=== PATIENT | female | born 1995 | race African-American/Black ===

== ENCOUNTER 2018-10-31 16:55 | Emergency (ER) | payer MEDICAID, SELFPAY ==
[2018-10-31 17:34] LABS: Bacteria/HPF None Seen HPF (None Seen); Bilirubin Negative (Negative); Blood, Urine Negative (Negative); Clarity Clear (Clear); Glucose, Urine (Dipstick) Normal (Negative); Leukocyte 25 Leu/uL (Negative); Nitrite Negative (Negative); Protein, Urine (Dipstick) 10 mg/dL (Neg-Trace); Squamous Epithelial 0-3 HPF (0-3); Urobilinogen Normal mg/dL (Less than 2)
== END 2018-10-31 18:00 | disposition home or self-care (01) ==
LOC: ERS 16:55
DX: O99.89 Other specified diseases and conditions complicating pregnancy, childbirth and the puerperium (principal); R35.0 Frequency of micturition; Z3A.19 19 weeks gestation of pregnancy
CPT/HCPCS: 81003; 81015; 87086; 99283

== ENCOUNTER 2019-01-11 13:25 | Observation (INO) | payer OTHER ==
[2019-01-11 13:59] VITALS: BMI 31.2
[2019-01-11] MEDS ORDERED: hydrALAZINE 20 MG/ML VIAL SLOW IVP PRN ×2 (14:03→17:41)
[2019-01-11 14:26] LABS: #Eosinphils 0.1 thou/uL (0.0-0.7); #Lymphocytes 3.3 thou/uL (1.20-3.40); #Monocytes 0.9 thou/uL (0.11-0.59); #Neutrophils 6.6 thou/uL (1.40-6.50); %Basophils 0.2 % (0.0-1.0); %Eosinophils 1.3 % (0.0-10.0); %Lymphocytes 30.5 % (21.0-51.0); %Monocytes 7.8 % (0.0-10.0); %Neutrophils 60.1 % (42.0-75.0); Hemoglobin 8.5 g/dL (12.0-16.0); Mean Corpuscular HGB CONC 31.3 g/dL (32.0-36.0); Mean Corpuscular Hemoglobin 20.8 pg (27.0-31.0); Mean Corpuscular Volume 66.7 fL (78.0-98.0); Mean Platelet Volume 9.6 fL (7.4-10.4); Platelet Count 216 thou/uL (130-400); RBC Distribution Width 15.4 % (11.5-14.5); Red Blood Cell (RBC) Count 4.08 mill/uL (4.20-5.40); White Blood Cell (WBC) Count 10.9 thou/uL (4.8-10.8)
[2019-01-11 14:42] LABS: AST (SGOT) 14 U/L (5-34); Anion Gap 11 mmol/L (10-20); BUN (Urea Nitrogen) 6 mg/dL (7.0-18.7); Calc. Creatinine Clearance 172 mL/min (70-130); Calcium 8.4 mg/dL (7.8-10.44); Carbon Dioxide 20 mmol/L (22-29); Chloride 107 mmol/L (98-107); Estimated GFR-MDRD Greater than 90; Glucose 72 mg/dL (70-105); Potassium 3.7 mmol/L (3.5-5.1); Sodium 134 mmol/L (136-145)
[2019-01-11 14:45] LABS: Hypochromia SLIGHT = 6-15 cells (100X) (0-5/hpf); MDiff Complete? YES; Microcytosis MODERATE=15-30 cells (100X) (0-5/hpf); Ovalocytes SLIGHT = 2-5 cells (100X) (0-1/hpf); Platelet Morphology Comment Appears Adequate; Polychromasia SLIGHT = 2-3 cells (100X) (0-2/hpf); Schistocytes SLIGHT = 2-5 cells (100X) (0-1/hpf); Target Cells SLIGHT = 2-5 cells (100X) (0-1/hpf); Tear Drops SLIGHT = 2-5 cells (100X) (0-1/hpf)
[2019-01-11 15:11] LABS: Bilirubin Negative (Negative); Blood, Urine Negative (Negative); Clarity Clear (Clear); Glucose, Urine (Dipstick) Normal (Negative); Leukocyte 75 Leu/uL (Negative); Nitrite Negative (Negative); Protein, Urine (Dipstick) 30 mg/dL (Neg-Trace); Urobilinogen Normal mg/dL (Less than 2)
[2019-01-11 15:20] LABS: Bacteria/HPF 2+ HPF (None Seen)
[2019-01-11 15:22] LABS: Urine Culture Reflex No No
--- NOTE | 2019-01-11 16:08 | HP ---
TIME OF SERVICE: 1530. REASON FOR ADMISSION: Elevated blood pressures at private MD office with elevated protein/creatinine ratio. HISTORY OF PRESENT ILLNESS: Ms. Westbrook is a 23-year-old 3, para 2, at 30 weeks today by stated TOM, who was sent over from Dr. Hill's office. She has had some weight gain and edema developed over the past week and had 4+ protein in the office. She has a history of prior preeclampsia. Blood pressures were non severe range in the office. She denies headache, scotoma, or blurred vision. 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 at term without complication, #1. 2. at 36 weeks for distress with preeclampsia, #2. Blood type A positive. Antibody negative. Pap negative. Rubella immune. PAST MEDICAL HISTORY: Denies. PAST SURGICAL HISTORY: . ALLERGIES: DENIES. MEDICATIONS: vitamins. SOCIAL HISTORY: Denies tobacco, alcohol, or IV drug abuse. FAMILY HISTORY: Noncontributory. REVIEW OF SYSTEMS: Noncontributory. PHYSICAL EXAMINATION: GENERAL: White female, in no acute distress, initial presentation. VITAL SIGNS: Blood pressure 132/86, pulse 85, respirations 18, temperature 98.7. HEENT: Within normal limits. LUNGS: Clear to auscultation bilaterally. HEART: Regular rate and rhythm. BREASTS: No masses bilaterally. ABDOMEN: Soft and nontender. Fundal height 30 cm. FHTs 140s. EXTERNAL GENITALIA: Unremarkable. PELVIC: Deferred. EXTREMITIES: DTRs 1+. LABORATORY DATA: Hematocrit is 27% with microcytic indices, white count of 10.9, platelet count of 216. Basic metabolic panel was within normal limits except for mild hyponatremia. AST was normal. Urinalysis revealed 75 leukocyte esterase, 4-6 RBCs and WBCs and squames as well as 2+ bacteria. Urine creatinine was 37, random protein was 41, consistent with a protein/creatinine ratio of 1.0 or greater. IMPRESSION: History of preeclampsia in the past with new onset proteinuria and edema without severe range blood pressures. PLAN: Admission, serial blood pressures, check urine culture and 24-hour urine. The patient has had ultrasounds performed on a monthly basis at Dr. Hill's office and verbal report is that normal rate of growth. Job ID: [id number]
[2019-01-11] MEDS ORDERED: Promethazine HCl 25 MG/ML VIAL IM PRN (17:41)
[2019-01-11] MEDS ORDERED: Ondansetron ODT 4 MG TAB PO PRN (17:41)
[2019-01-11] MEDS ORDERED: Acetaminophen 325 MG TAB PO PRN (17:41)
[2019-01-11] MEDS ORDERED: Ondansetron PF 4 MG/2 ML Vial IVP PRN (17:41)
[2019-01-11 18:44] LABS: HBSAg Index 0.19 S/CO (0-0.99); Hep B Surf Ag Non-Reactive S/CO (NonReactive)
[2019-01-11 18:47] LABS: Syphilis Antibody Nonreactive (Nonreactive); Syphilis Antibody Index 0.05 S/CO (<1.00 Non-Reactive)
[2019-01-11 19:23] LABS: Amphetamine Not Detected (NotDetected); Barbiturates Screen Not Detected (NotDetected); Benzodiazepine Screen Not Detected (NotDetected); Cocaine Metabolite Screen Not Detected (NotDetected); Medtox Control Line Valid? VALID (VALID); Medtox Reader # READER 4; Methadone Not Detected (NotDetected); Methamphetamine Not Detected (NotDetected); Opiate Screen Not Detected (NotDetected); Oxycodone Screen Not Detected (NotDetected); Phencyclidine (PCP) Not Detected (NotDetected); THC/Cannabinoid Screen Not Detected (NotDetected); Tricyclic Screen Not Detected (NotDetected)
[2019-01-12 01:39] LABS: Urine Total Volume 2925 mL (600-1600)
[2019-01-12 01:52] LABS: Protein - 24 Hr 556 mg/24 hr (Less than 300); Protein, Urine 19 mg/dL (1-14)
[2019-01-12 07:46] VITALS: BP 124/78; TEMP 99
--- NOTE | 2019-01-13 03:55 | DIS ---
DATE OF ADMISSION: 01/11/2019 DATE OF DISCHARGE: 01/12/2019 HOSPITAL COURSE: Ms. Westbrook was admitted to observation status on 01/11 after being sent over from Dr. Hill's office at 30 weeks gestation by stated TOM. She is a G3, P2 with a history of preeclampsia in previous pregnancies. She denied headache, blurred vision, scotoma, and no severe range blood pressures. She was found to have normal preeclampsia labs upon admission, except for 4+ proteinuria and a protein to creatinine ratio of greater than 1.0. She was admitted for 24-hour urine sampling. Approximately 12 hours specimen was collected by the lab with a 3 L of volume and 556 mg of protein total. Considering that this would place the patient at approximately 1 g per 24 hours, suspicions about her proteinuria were confirmed. Serial blood pressures were not consistent with preeclampsia with the highest being 139/92. PHYSICAL EXAMINATION: VITAL SIGNS: This morning, blood pressure was 131/83, temperature 98.0, pulse 62, respirations 18. EXTREMITIES: The patient has minimal if any edema in her hands and slight in her feet. DTRs are 1+. LUNGS: Clear to auscultation bilaterally. ABDOMEN: Soft and nontender without rebound or guarding. FHTs are 150s. IMPRESSION: Thirty weeks gestation with new onset proteinuria. Blood pressures are not consistent with gestational hypertension or preeclampsia at this time. PLAN: Discussed options with the patient and Dr. Hill. We will go ahead and discharge the patient home as she has needs to provide care for her children. ER precautions were given to the patient and she will follow up with Dr. Hill on a weekly basis. We will obtain blood pressure cuff and check blood pressure at home 2 to 3 times a day and re-present if elevated pressures are noted. As pressures are not elevated this time, we will not administer corticosteroids, but if the patient re- presents with elevated blood pressures, would be a good candidate for corticosteroids as well. The patient reports that she has been getting serial rate of growth ultrasounds with Dr. Hill in his office that have been normal. Antepartum records not available. Job ID: [id number]
== END 2019-01-12 09:13 | disposition home health service (06) ==
LOC: L&D/OP 13:25 → INTOOBSV 17:37 → 3SE 17:37
PROVIDERS: ADMIT Obstetrics & Gynecology; ATTEND Obstetrics & Gynecology
DX: O12.13 Gestational proteinuria, third trimester (principal); Z3A.30 30 weeks gestation of pregnancy
CPT/HCPCS: 36415; 80048; 80306; 81001; 82570; 84156; 84450; 85025; 86780; 86850; 86900; 86901; 87086; 87340; 99285; G0378

== ENCOUNTER 2019-01-19 15:58 | Inpatient (IN) | payer OTHER ==
[2019-01-19] MEDS ORDERED: hydrALAZINE 20 MG/ML VIAL SLOW IVP PRN ×3 (16:18→20:36)
[2019-01-19] MEDS ORDERED: Promethazine HCl 25 MG/ML VIAL IM PRN (16:26)
[2019-01-19] MEDS ORDERED: Calcium Gluc 4.6 MEQ/10 ML (100 MG/ML) SLOW IVP PRN (16:26)
[2019-01-19] MEDS ORDERED: Ondansetron PF 4 MG/2 ML Vial IVP PRN (16:26)
[2019-01-19] MEDS ORDERED: Acetaminophen 500 MG TAB PO PRN (16:26)
[2019-01-19 16:27] VITALS: BMI 32.4
[2019-01-19] MEDS ORDERED: Magnesium Sulfate 20 GM/WATER 500 ML BAG IVPB SCH (16:30)
[2019-01-19] MEDS ORDERED: Lactated Ringer's 1,000 ML IV SCH (16:54)
[2019-01-19 16:58] LABS: #Basophils 0.1 thou/uL (0.0-0.2); #Eosinphils 0.1 thou/uL (0.0-0.7); #Lymphocytes 3.2 thou/uL (1.20-3.40); #Monocytes 0.8 thou/uL (0.11-0.59); #Neutrophils 8.5 thou/uL (1.40-6.50); %Basophils 0.8 % (0.0-1.0); %Lymphocytes 24.8 % (21.0-51.0); %Monocytes 6.2 % (0.0-10.0); %Neutrophils 67.1 % (42.0-75.0); Hemoglobin 9.8 g/dL (12.0-16.0); Mean Corpuscular HGB CONC 30.8 g/dL (32.0-36.0); Mean Corpuscular Hemoglobin 20.6 pg (27.0-31.0); Mean Corpuscular Volume 66.8 fL (78.0-98.0); Mean Platelet Volume 10.8 fL (7.4-10.4); Platelet Count 260 thou/uL (130-400); RBC Distribution Width 16.6 % (11.5-14.5); Red Blood Cell (RBC) Count 4.74 mill/uL (4.20-5.40); White Blood Cell (WBC) Count 12.7 thou/uL (4.8-10.8)
[2019-01-19 17:28] LABS: ALT (SGPT) 12 U/L (8-55); AST (SGOT) 23 U/L (5-34); Albumin 2.8 g/dL (3.5-5.0); Alkaline Phosphatase 68 U/L (40-110); Amphetamine Not Detected (NotDetected); Anion Gap 15 mmol/L (10-20); BUN (Urea Nitrogen) 10 mg/dL (7.0-18.7); Barbiturates Screen Not Detected (NotDetected); Benzodiazepine Screen Not Detected (NotDetected); Bilirubin, Total 0.3 mg/dL (0.2-1.2); Calc. Creatinine Clearance 150 mL/min (70-130); Calcium 8.5 mg/dL (7.8-10.44); Carbon Dioxide 21 mmol/L (22-29); Chloride 105 mmol/L (98-107); Cocaine Metabolite Screen Not Detected (NotDetected); Estimated GFR-MDRD Greater than 90; Globulin 3.5 g/dL (2.4-3.5); Glucose 68 mg/dL (70-105); Medtox Control Line Valid? VALID (VALID); Medtox Reader # READER 1; Methadone Not Detected (NotDetected); Methamphetamine Not Detected (NotDetected); Opiate Screen Not Detected (NotDetected); Oxycodone Screen Not Detected (NotDetected); Phencyclidine (PCP) Not Detected (NotDetected); Potassium 4.6 mmol/L (3.5-5.1); Protein, Total 6.3 g/dL (6.0-8.3); Sodium 136 mmol/L (136-145); THC/Cannabinoid Screen Not Detected (NotDetected); Tricyclic Screen Not Detected (NotDetected)
[2019-01-19] MEDS: Magnesium Sulfate 20 gm/500 ml 20 GM/500 ML BAG IVPB SCH (17:33)
--- NOTE | 2019-01-19 17:34 | ULT ---
US Biophysical Profile History: Severe hypertension Comparison: None. Findings: Real-time grayscale and color evaluation of the gravid uterus was performed. Single viable intrauterine with average ultrasound age 31 week 4 day with estimated date of delivery March 19, 2019. Biometry: Biparietal diameter: 7.98 cm, 32 weeks 0 day Head circumference: 29.4 similar, 32 weeks 3 day Abdominal circumference: 26.19 cm, 30 week 2 day Femur length: 6.01 cm, 31 week 2 day Estimated weight: 3 lbs. 11 oz., 32nd percentile. Biophysical profile score: 8/8 heart rate: 128 bpm Amniotic fluid index: 7.6 cm No placenta previa. The placenta is anterior and the presentation is cephalic Impression: Biophysical profile score of 8/8.
[2019-01-19 17:39] LABS: Syphilis Antibody Nonreactive (Nonreactive); Syphilis Antibody Index 0.06 S/CO (<1.00 Non-Reactive)
[2019-01-19] MEDS: Betamet Acet/Betamet Na Ph 30 MG/5 ML VIAL IM SCH (17:39)
[2019-01-19 17:40] LABS: HBSAg Index 0.17 S/CO (0-0.99); Hep B Surf Ag Non-Reactive S/CO (NonReactive)
--- NOTE | 2019-01-19 17:52 | PDOC.LDHP ---
Labor and Delivery H&P Chief complaint: other (Elevated BP) HPI: 23 y/o at 31w1d presents for evaluation of elevated BPs in clinic yesterday. Was advised to come in yesterday but did not arrive until today. Denies LANG, vision changes, RUQ pain, or other concerns. Denies VB, LOF, ctx, or decreased FM. ROS neg for HEENT, cv, pulm, gi, gu, neuro, psych, skin, musculoskeletal, or constitutional symptoms other than mentioned above. OB provider - [facility] History Details: 1 prior term 1 prior LTCS at 36 weeks Past Medical History: Obesity Current medications: pre-edouard vitamins Previous surgical history: low tranverse CS (x1) Allergies/Adverse Reactions: Allergies Allergy/AdvReac Type Severity Reaction Status Date / Time No Known Drug Allergies Allergy Verified 01/11/19 17:47 Social history: none - Physical Exam Abnormal vital signs: severe range BPs General: NAD, resting Lungs: nonlabored breathing Abdomen: gravid Extremeties: no edema FHT: category 1 (130s, mod variability, + accels, no decels) Kismet contractions every: occasional - Assessment 23 y/o at 31w1d with severe range BPs requiring treatment. - Plan Plan: admit to L&D, magnesium for seizure prophylaxis -: - CBC, CMP, urine protein/Creatinine ordered and pending - Celestone for lung maturity - Magnesium for seizure prophylaxis and neuroprotection - Hydralazine for BPs over 160/110 - US for growth: S=D, BPP 8/8 - Continue to monitor
[2019-01-19] MEDS ORDERED: hydrALAZINE 20 MG/ML VIAL ONE (20:37)
[2019-01-20] MEDS: Magnesium Sulfate 20 gm/500 ml 20 GM/500 ML BAG IVPB SCH ×2 (01:27→11:47)
[2019-01-20 06:48] LABS: Hemoglobin 10.4 g/dL (12.0-16.0); Mean Corpuscular HGB CONC 30.9 g/dL (32.0-36.0); Mean Corpuscular Hemoglobin 20.7 pg (27.0-31.0); Mean Platelet Volume 8.2 fL (7.4-10.4); Platelet Count 295 thou/uL (130-400); RBC Distribution Width 16.7 % (11.5-14.5); Red Blood Cell (RBC) Count 5.04 mill/uL (4.20-5.40); White Blood Cell (WBC) Count 14.7 thou/uL (4.8-10.8)
[2019-01-20 07:14] LABS: ALT (SGPT) 10 U/L (8-55); AST (SGOT) 16 U/L (5-34); Albumin 2.7 g/dL (3.5-5.0); Alkaline Phosphatase 70 U/L (40-110); Anion Gap 15 mmol/L (10-20); BUN (Urea Nitrogen) 11 mg/dL (7.0-18.7); Bilirubin, Total 0.2 mg/dL (0.2-1.2); Calc. Creatinine Clearance 144 mL/min (70-130); Calcium 8.1 mg/dL (7.8-10.44); Carbon Dioxide 18 mmol/L (22-29); Chloride 101 mmol/L (98-107); Estimated GFR-MDRD Greater than 90; Globulin 3.6 g/dL (2.4-3.5); Glucose 103 mg/dL (70-105); Magnesium 7.1 mg/dL (1.6-2.6); Potassium 4.8 mmol/L (3.5-5.1); Protein, Total 6.3 g/dL (6.0-8.3); Sodium 129 mmol/L (136-145)
--- NOTE | 2019-01-20 08:21 | PDOC.EVN ---
Event Note - Event Note Event Note: Hospital Medicine Director SARA [id number] EGA: 31weeks 2 days ED 03/22/19 I am at bedsdie now with Carrie We will give lasix 10mg SIVP x 1 not for BP control but for third space edema in feet. BPs reviewed: 140/90s UOP at 200ml/hr FHTS ok Mag in use Steroid next at 1730 SCDs onj
[2019-01-20] MEDS ORDERED: Furosemide 20 MG/2 ML VIAL SLOW IVP SCH (08:30)
[2019-01-20] MEDS: Ferrous Sulfate 325 MG TAB PO SCH ×2 (09:15→17:26)
--- NOTE | 2019-01-20 15:59 | PDOC.EVN ---
Event Note - Event Note Event Note: 1600 31.2 weeks Preeclampsia S. Doing well O. BPs reviewed: 140/80s-90s, none severe Lasix with variable response: initially larger UPO but latesly effect has trailed off Strop checked A/P: 31.2 weeks today with PREECLAMPSIA. Large amount of urine protein noted but again that is not part of severe criteria any longer. We will stop MagSulfate now. Celestone to be completed today Helpock IV remove quinn We will follow BPs here in L&D off mag for a while
[2019-01-20] MEDS: Betamet Acet/Betamet Na Ph 30 MG/5 ML VIAL IM SCH (17:26)
--- NOTE | 2019-01-20 19:48 | PDOC.EVN ---
Event Note - Event Note Event Note: At bedside One BP was 160/90s while she was , ASX...retaken was systolics in 150s. Prior CS X 1 with last reviewed
--- NOTE | 2019-01-21 06:28 | PDOC.LDPN ---
Labor & Delivery Progress Note - Subjective Subjective: comfortable, no concerns - Objective Abnormal vital signs: BPs 140-150s/90s General: NAD Uterine fundus: non tender Wanda contractions every: Monitors off as not in labor Other exam findings: Clinicaly well, NAD, abdomen soft - Assessment (1) Pre-eclampsia in third trimester Code(s): O14.93 - UNSPECIFIED PRE-ECLAMPSIA, THIRD TRIMESTER Current Visit: Yes Status: Acute Plan: continue plan of care (EGA now 31 W3D...BPs elevated but nonsevere, we will transfer to the [facility] for BP monitoring. BP every 4 hrs there. NST QDay)
[2019-01-21] MEDS: Ferrous Sulfate 325 MG TAB PO SCH ×2 (08:32→18:08)
[2019-01-21] MEDS ORDERED: Polyethylene Glycol 3350 17 GM Packet PO PRN (18:03)
[2019-01-21] MEDS: hydrALAZINE 20 MG/ML VIAL SLOW IVP PRN (20:24)
[2019-01-22] MEDS: hydrALAZINE 20 MG/ML VIAL SLOW IVP PRN ×2 (04:16→05:29)
--- NOTE | 2019-01-22 06:44 | PRG ---
DATE OF SERVICE: TIME OF SERVICE: 619 SUBJECTIVE: Ms. Westbrook is now at 31 weeks and 4 days gestation. She is G3, P2, previous , previous vaginal delivery, who is admitted for elevated blood pressures with proteinuria. She is resting comfortably. OBJECTIVE: VITAL SIGNS: Current blood pressure 136/83, blood pressure at 0530 was 173/98 prior to second dose of apresoline, patient had a blood pressure of 191/97 at 0415. She has remained afebrile at 98.2, pulse 82, and respirations 16. She denies headache, blurred vision, right upper quadrant pain. FHTs are 140s. DTRs are 2+. LABORATORY DATA: No recent labs. IMPRESSION: Worsening hypertension status post corticosteroids and magnesium for 24 hours with improvement of blood pressures and transferred to the [facility]. PLAN: 1. N.p.o. 2. Transfer back to Labor and Delivery. 3. Serial blood pressures. 4. If blood pressures remain high, we will initiate magnesium sulfate, repeat IV blood pressure medications and likely proceed with repeat section. Of note, patient's protein to creatinine ratio is approximately 7.0. Urine drug screen on admission was negative. Job ID: [id number]
[2019-01-22] MEDS ORDERED: Bicitra 30 ML UDCUP PO SCH (07:15)
[2019-01-22] MEDS ORDERED: CEFAZOLIN 2 GM in Premix Bag 1 BAG IVPB SCH (07:15)
[2019-01-22 08:07] LABS: Hemoglobin 9.4 g/dL (12.0-16.0); Mean Corpuscular HGB CONC 29.6 g/dL (32.0-36.0); Mean Corpuscular Hemoglobin 20.1 pg (27.0-31.0); Mean Corpuscular Volume 68.1 fL (78.0-98.0); Mean Platelet Volume 9.4 fL (7.4-10.4); Platelet Count 258 thou/uL (130-400); RBC Distribution Width 16.6 % (11.5-14.5); Red Blood Cell (RBC) Count 4.65 mill/uL (4.20-5.40); White Blood Cell (WBC) Count 18.6 thou/uL (4.8-10.8)
[2019-01-22 08:25] LABS: ALT (SGPT) 9 U/L (8-55); AST (SGOT) 15 U/L (5-34); Albumin 2.4 g/dL (3.5-5.0); Alkaline Phosphatase 57 U/L (40-110); Anion Gap 10 mmol/L (10-20); BUN (Urea Nitrogen) 12 mg/dL (7.0-18.7); Bilirubin, Total 0.2 mg/dL (0.2-1.2); Calc. Creatinine Clearance 176 mL/min (70-130); Calcium 7.7 mg/dL (7.8-10.44); Carbon Dioxide 23 mmol/L (22-29); Chloride 108 mmol/L (98-107); Estimated GFR-MDRD Greater than 90; Globulin 2.9 g/dL (2.4-3.5); Glucose 83 mg/dL (70-105); Potassium 4.5 mmol/L (3.5-5.1); Protein, Total 5.3 g/dL (6.0-8.3); Sodium 136 mmol/L (136-145)
[2019-01-22 08:42] LABS: Syphilis Antibody Nonreactive (Nonreactive); Syphilis Antibody Index 0.05 S/CO (<1.00 Non-Reactive)
[2019-01-22 08:44] LABS: HBSAg Index 0.17 S/CO (0-0.99); Hep B Surf Ag Non-Reactive S/CO (NonReactive)
[2019-01-22] MEDS ORDERED: Oxytocin 10 UNITS/ML VIAL ONE (09:10)
[2019-01-22] MEDS ORDERED: Ondansetron PF 4 MG/2 ML Vial ONE (09:10)
[2019-01-22] MEDS ORDERED: MORPHINE 5 MG/10 ML PF VIAL ONE (09:19)
[2019-01-22] MEDS ORDERED: Ondansetron PF 4 MG/2 ML Vial IVP PRN ×2 (09:24→11:08)
[2019-01-22] MEDS ORDERED: Promethazine HCl 25 MG SUPP PR PRN (09:24)
[2019-01-22] MEDS ORDERED: diphenhydrAMINE 50 MG/ML VIAL IVP PRN (09:24)
[2019-01-22] MEDS ORDERED: Naloxone HCl 0.4 mg/ml Vial IVP PRN ×2 (09:24)
[2019-01-22] MEDS ORDERED: Promethazine HCl 25 MG/ML VIAL IM PRN (09:24)
[2019-01-22] MEDS ORDERED: L&D-Morphine 4 MG/ML VIAL SLOW IVP PRN (09:24)
[2019-01-22] MEDS ORDERED: Meperidine HCl/PF 25 MG/ML VIAL SLOW IVP PRN (09:24)
[2019-01-22] MEDS ORDERED: Ondansetron HCl/PF 4 MG/2 ML Vial IVP PRN (09:24)
[2019-01-22] MEDS ORDERED: HYDROmorphone 2 MG/ML VIAL SLOW IVP PRN (09:24)
[2019-01-22] MEDS ORDERED: Naloxone HCl 0.4 mg/ml Vial IV PRN (09:24)
[2019-01-22] MEDS ORDERED: Communication Order-Pharmacy FS SCH (09:30)
[2019-01-22] MEDS ORDERED: Ketorolac Tromethamine 30 MG/ML VIAL IVP SCH (09:30)
[2019-01-22] MEDS ORDERED: CEFAZOLIN 1 GM VIAL ONE (09:44)
[2019-01-22] MEDS ORDERED: Promethazine HCl 25 MG/ML VIAL ONE (09:51)
[2019-01-22] MEDS ORDERED: Midazolam HCl 2 mg/2 ml Vial ONE (09:51)
[2019-01-22] MEDS ORDERED: PROPOFOL 20 ML ONE ×2 (10:00→10:25)
[2019-01-22] MEDS ORDERED: Polyethylene Glycol 3350 17 GM Packet PO PRN (11:01)
[2019-01-22] MEDS ORDERED: Calcium Gluconate 4.6 MEQ in Sodium Chloride 0.9% 100 ML IVPB PRN (11:08)
[2019-01-22] MEDS ORDERED: Bisacodyl 10 MG SUPP PR PRN (11:08)
[2019-01-22] MEDS ORDERED: Magnesium Sulfate 20 GM/WATER 500 ML BAG IVPB SCH (11:08)
[2019-01-22] MEDS ORDERED: diphenhydrAMINE 25 MG CAP PO PRN (11:08)
[2019-01-22] MEDS ORDERED: Lanolin Ointment 7 GM TUBE TOP PRN (11:08)
[2019-01-22] MEDS ORDERED: Zolpidem Tartrate 5 MG TAB PO PRN (11:08)
[2019-01-22] MEDS ORDERED: hydrALAZINE 20 MG/ML VIAL SLOW IVP PRN (11:08)
[2019-01-22] MEDS ORDERED: NS / Oxytocin 40 units/1000ml 1,000 ML IV SCH (11:08)
[2019-01-22] MEDS ORDERED: Magnesium Sulfate 20 gm/500 ml 20 GM/500 ML BAG ONE (11:19)
--- NOTE | 2019-01-22 11:56 | PDOC.OPDEL ---
OB Operative/Delivery Note Delivery Dr/Surgeon: Johanny Assist: Donovan Rossi Pre-Delivery Diagnosis: medically indicated induction (preE with severe features ) Procedure/Post Delivery Dx: repeat low transverse CS Weeks gestation: 31 (31.1) Anesthesia: spinal - Findings A Sex: male - Additional Findings/Plan Placenta delivered: spontaneous Repaired Obstetrical Laceration: none findings: low transverse hysterotomy without extension Compilations/Other Findings: Date of Procedure: 01/22/2019 Resident Surgeon: Donovan Rossi Attending Surgeon: Johanny Procedure: Repeat low transverse caesarean section Preoperative Diagnosis: 1) intrauterine 2)Previous 3)Preeclampsia with severe range blood pressures 4)Non-reassuring hear tones (persistent cat two strip for recurrent late decelerations). Postoperative Diagnosis: 1)1) intrauterine 2)Previous 3)Preeclampsia with severe range blood pressures 4)Non-reassuring heart tones (persistent cat two strip for recurrent late decelerations). Anesthesia: spinal Indications: 23 y/o at 31w3d presents for evaluation of elevated BPs found to have preeclampsia with severe range blood pressures and a persistent category 2 strip with recurrent late decelerations, who was taken to the OR for a rLTCS, medically indicated. Procedure in Detail: After risks, benefits, and alternatives were explained to the patient, she gave informed consent. Pre-operative antibiotics included Cefazolin 2 gram IV. The patient was taken to the operating room and spinal anesthesia was initiated. She was placed in the supine position with a left tilt and prepped and draped in usual sterile fashion. A Pfannenstiel incision was made with a scalpel and carried down to the level of the fascia which was sharply nicked. The fascial cut was extended bilaterally with Dean sissors. The inferior and superior edges of the cut fascial edges were elevated with Deonna clamps and the underlying rectus muscles were sharply and bluntly dissected free. The recti were divided digitally and retracted manually. The peritoneum was entered bluntly and retracted manually. Zander-O retractor placed. A low transverse score was made with the scalpel and the uterus was entered in the midline with the scalpel. Clear fluid was seen. The hysterotomy was extended manually. The infant was noted to be vertex and was easily delivered by fundal pressure. Mouth and nares were bulb suctioned. Cord clamped and cut and grossly normal male infant was handed to waiting nurse. Cord blood and gas was obtained. Placenta was spontaneously extracted, found to be intact with 3 vessel cord and discarded. The endometrium was curetted with a dry lap. The uterus was closed with a running locking #1 Monocryl suture. Following this hemostasis was noted. The peritoneum was closed with a running nonlocking 2-0 chromic suture. The fascia was closed with a running non-locking 0-Vicryl suture. The subcutaneous tissue was irrigated and there were no bleeders. It was then closed by a running nonlocking 3-0 plain gut suture. The skin was sewn in the subcuticular fashion using a 4-0 monocryl and a pressure dressing was placed. All counts were correct. The patient tolerated the procedure well and was taken to the recovery room in stable condition. Estimated Blood Loss: 500 ml qBL: 485ml Complications: None Specimens: Cord blood sent to lab Findings: Grossly normal male infant with Apgars of 1 and 7. Grossly normal placenta with 3 vessel cord discarded. Drains: Hardy to gravity draining clear urine Post delivery plan: recovery in LICU Addendum - Attending - Attending Attestation Date/Time: 01/22/192041 I personally evaluated the patient and discussed the management with Dr. Rossi I agree with the History, Examination, Assessment and Plan documented above with any addition or exceptions noted below. I functioned as primary surgeon and agree with the documentation above.
[2019-01-22] MEDS ORDERED: Ketorolac Tromethamine 30 MG/ML VIAL ONE (14:55)
[2019-01-22] MEDS: Ketorolac Tromethamine 30 MG/ML VIAL IVP PRN ×2 (14:58→22:09)
--- NOTE | 2019-01-22 15:03 | PRG ---
DATE OF SERVICE: 01/22/2019 The patient is a 23-year-old female with an intrauterine at 31 weeks and 4 days, who has a diagnosis of preeclampsia with severe features. The patient is status post magnesium and betamethasone x2. She was on the floor having expectant management and began spiking severe pressures into the 190s and was brought to Labor and Delivery for evaluation. Upon our time of arrival, fetus was having deep repetitive late decelerations, almost the sinusoidal pattern, which after resuscitative measures became less frequent, but persistent. Fetus became tachycardic into the 170s with late-appearing decelerations. Given the patient's overall health status and likely chance to continue this much further than she has currently and unsure the length of time this fetus has been having this persistent category 3 tracing, decision was made to proceed with primary . We did explain to the patient and her our concerns, and they were supportive and agreed to proceed also. Anesthesia and hospital staff were notified. Dr. Hill, her primary OB [place] moment and is being managed by our team. Job ID: [id number]
[2019-01-22] MEDS: Ibuprofen 800 MG TAB PO SCH (16:15)
[2019-01-22] MEDS: Magnesium Sulfate 20 gm/500 ml 20 GM/500 ML BAG IVPB SCH (20:24)
[2019-01-22] MEDS: Docusate Calcium (SURFAK) 240 MG CAP PO SCH (22:09)
[2019-01-23] MEDS: Ibuprofen 800 MG TAB PO SCH ×4 (04:07→19:30)
[2019-01-23 06:12] LABS: Hemoglobin 8.9 g/dL (12.0-16.0); Mean Corpuscular HGB CONC 30.5 g/dL (32.0-36.0); Mean Corpuscular Hemoglobin 20.2 pg (27.0-31.0); Mean Corpuscular Volume 66.1 fL (78.0-98.0); Mean Platelet Volume 10.1 fL (7.4-10.4); Platelet Count 265 thou/uL (130-400); RBC Distribution Width 16.8 % (11.5-14.5); Red Blood Cell (RBC) Count 4.41 mill/uL (4.20-5.40); White Blood Cell (WBC) Count 21.4 thou/uL (4.8-10.8)
[2019-01-23] MEDS: Magnesium Sulfate 20 gm/500 ml 20 GM/500 ML BAG IVPB SCH (06:42)
--- NOTE | 2019-01-23 06:46 | PDOC.PP ---
Post Progress Note Post Day #: 1 Subjective: 23YO who is PP day #1 s/p a rLTCS at 31w3d for preeclampsia with severe range blood pressures and NRFHTs. No complaints this AM. Has not been ambulating as still on Mg. Tolerating PO. Denies any fever/chills, weakness, headache, vision changes, SOB, or RUQ pain. Reports normal lochia. PO intake tolerated: yes Flatus: yes Ambulation: yes Weight Weight 88.451 kg BP: 149/103 7 HR: 80 - Physical Examination General: NAD Cardiovascular: no m/r/g, RRR Respiratory: clear to auscultation bilaterally, non-labored breathing Abdominal: + bowel sounds, lochia (normal), no distention, appropriately TTP Extremities: negative homans (B) Skin: CS incision dry & intact, no rash Neurological: no gross focal deficits (reflexes intact in B/L UEs) Psychiatric: A&Ox3, normal affect Result Diagrams: 01/23/19 05:28 01/22/19 07:53 Additional Labs: Post Labs Blood Type A POSITIVE 01/19/19 16:46 Hep Bs Antigen Non-Reactive S/CO (NonReactive) 01/22/19 07:53 (1) Pre-eclampsia in third trimester Code(s): O14.93 - UNSPECIFIED PRE-ECLAMPSIA, THIRD TRIMESTER Status: Acute - Assessment/Plan 23YO PP day #1 s/p rLTCS @ 31.3 weeks for pre-e w/ severe range pressures & NRFHTs. Pre-e with severe range pressures: - Patient remained on Mg overnight & still had 1 severe range pressure of 166/ 103 @ 0441. Otherwise, BP ranging from 135-140/80-100 consistently. - Will continue Mg for full 24 hours s/p delivery & start on procardia 30mg QD today in anticipation of BPs remaining elevated once Mg is stopped. - UO adequate over last 3 hours ranging from 150-200mLs. Reflexes intact w/ no concerns for toxicity at this point. Will continue to monitor closely. PP day #1 s/p rLTCS: - Incision site clean, dry & intact with minimal serosanguinous drainage noted on dressing. No surrounding erythema noted. - Will continue routine PP care w/ PO pain meds & PNVs. - Will encourage ambulation once Mg is stopped. SCDs for VTE PPx in the meantime. Acute blood loss anemia superimposed on anemia in : - Hgb down to 8.9 this AM. Will start on PO iron in addition to PNVs. Leukocytosis: - WBC elevated at 21.4 this AM. Likely 2/2 post-op inflammatory changes as patient has remained afebrile & other than BP all other vitals have been WNLs. - Will continue to monitor. Dispo: Will d/c Mg after 24 hours and likely transfer to floor after on PO meds for BP control.
[2019-01-23] MEDS ORDERED: Ferrous Fumarate 324 MG TAB PO SCH (08:00)
[2019-01-23] MEDS ORDERED: Adacel (T-DAP) 0.5 ML SYRINGE IM ONE (09:00)
[2019-01-23] MEDS ORDERED: NIFEdipine XL 30 MG TAB PO SCH (09:00)
[2019-01-23] MEDS ORDERED: Prenatal Vitamin 1 TAB PO SCH (09:00)
[2019-01-23] MEDS: Ketorolac Tromethamine 30 MG/ML VIAL IVP PRN (10:00)
--- NOTE | 2019-01-23 10:01 | PDOC.EVN ---
Event Note - Event Note Event Note: Magnesium check @0950 S: Denies LANG, vision changes, SOB, chest pain, leg swelling, RUQ pain VS: BPs have been 140s-150s/90-100s. No severe ranges pressures PE: CV-RRR. Resp- CTAB. DTRs 2+. No peripheral edema. Abd-mild tenderness to palpation on uterus (s/p c section) UO: >30cc/hr A/P -Will have completed 24 hours magnesium period at 10:00 this morning. -IV antihypertensives PRN >160/>110 -Continue with observation for few hours, then consider transfer to
[2019-01-23] MEDS: Docusate Calcium (SURFAK) 240 MG CAP PO SCH ×2 (10:20→19:32)
[2019-01-23] MEDS ORDERED: Milk Of Magnesia 30 ML UDCUP PO PRN (14:33)
[2019-01-23] MEDS ORDERED: hydrALAZINE 20 MG/ML VIAL SLOW IVP PRN (14:33)
[2019-01-23] MEDS ORDERED: diphenhydrAMINE 25 MG CAP PO PRN (14:33)
[2019-01-23] MEDS ORDERED: Benzocaine-Menthol 82.5 ML CAN TOP PRN (14:33)
[2019-01-23] MEDS ORDERED: Bisacodyl 10 MG SUPP PR PRN (14:33)
[2019-01-23] MEDS ORDERED: Lanolin Ointment 7 GM TUBE TOP PRN (14:33)
[2019-01-23] MEDS ORDERED: Preparation H Ointment 28 GM TUBE PR PRN (14:33)
[2019-01-23] MEDS ORDERED: NS / Oxytocin 40 units/1000ml 1,000 ML IV SCH (14:33)
[2019-01-23] MEDS ORDERED: Ondansetron PF 4 MG/2 ML Vial IVP PRN (14:33)
[2019-01-23] MEDS ORDERED: Promethazine HCl 25 MG/ML VIAL IM PRN (14:33)
[2019-01-23] MEDS: HYDROcodone/Acetaminophen 5/325 mg Tablet PO PRN ×3 (14:47→23:32)
[2019-01-23] MEDS: Ferrous Sulfate 325 MG TAB PO SCH (17:31)
[2019-01-23] MEDS ORDERED: Sodium Chloride 0.9% 10 ML ONE (21:49)
[2019-01-24] MEDS: Ibuprofen 800 MG TAB PO SCH ×3 (05:45→22:48)
--- NOTE | 2019-01-24 07:06 | PRG ---
DATE OF SERVICE: 01/24/2019 SUBJECTIVE: The patient is resting comfortably. Ms. Westbrook is now approximately 42 hours status post delivery for severe preeclampsia. She has been started on Procardia XL 30 mg. She is resting comfortably without complaints. OBJECTIVE: VITAL SIGNS: Temperature 98.8, T-max 99.3, pulse 91, respirations 16, blood pressure 135/81. LUNGS: Clear to auscultation bilaterally. HEART: Regular rate and rhythm. ABDOMEN: Soft and nontender. Incision is intact and dry. EXTREMITIES: No clubbing, cyanosis, or edema. LABORATORY DATA: Postoperative hematocrit 31.7% to 29.2%. IMPRESSION: Status post delivery at 31 to 32 weeks' gestation with severe preeclampsia. PLAN: Continue routine care with addition of Procardia XL. Anticipate possible discharge home tomorrow. Job ID: [id number]
[2019-01-24] MEDS: Ferrous Sulfate 325 MG TAB PO SCH ×2 (07:35→17:56)
[2019-01-24] MEDS: Prenatal Vitamin 1 TAB PO SCH (07:35)
[2019-01-24] MEDS: HYDROcodone/Acetaminophen 5/325 mg Tablet PO PRN ×2 (07:36→13:33)
[2019-01-24] MEDS: Docusate Calcium (SURFAK) 240 MG CAP PO SCH ×2 (07:36→22:48)
[2019-01-24] MEDS ORDERED: NIFEdipine XL 30 MG TAB PO SCH (09:00)
[2019-01-24] MEDS ORDERED: FLU VACC QS2019-20(6MOS UP)/PF 60 MCG/0.5 ML SYRINGE IM ONE (09:00)
[2019-01-25] MEDS: Sodium Chloride 0.9% 10 ML ONE ×2 (00:30→00:43)
--- NOTE | 2019-01-25 00:39 | PDOC.EVN ---
Event Note - Event Note Event Note: CTSP for elevated BP. Denies LANG or blurry vision. BP> 160 systolic on last check. Will give Labetalol 20 mg IV now and increase Procardia XL to 60 QD.
[2019-01-25] MEDS ORDERED: Labetalol HCl 100 MG/20 ML VIAL SLOW IVP SCH (00:45)
[2019-01-25] MEDS: HYDROcodone/Acetaminophen 5/325 mg Tablet PO PRN ×3 (01:20→22:04)
[2019-01-25] MEDS: NIFEdipine XL 60 MG TAB PO SCH (06:00)
[2019-01-25] MEDS: Ibuprofen 800 MG TAB PO SCH ×3 (06:01→21:41)
[2019-01-25] MEDS: Prenatal Vitamin 1 TAB PO SCH (08:56)
[2019-01-25] MEDS: Docusate Calcium (SURFAK) 240 MG CAP PO SCH ×2 (08:57→21:41)
[2019-01-25] MEDS: Ferrous Sulfate 325 MG TAB PO SCH ×2 (09:00→16:32)
[2019-01-25] MEDS ORDERED: Diazepam 2 MG TAB PO SCH (16:30)
[2019-01-25] MEDS ORDERED: Furosemide 40 MG TAB PO SCH (16:30)
[2019-01-26] MEDS: HYDROcodone/Acetaminophen 5/325 mg Tablet PO PRN (04:20)
[2019-01-26 05:37] LABS: #Basophils 0.1 thou/uL (0.0-0.2); #Eosinphils 0.6 thou/uL (0.0-0.7); #Lymphocytes 4.6 thou/uL (1.20-3.40); #Monocytes 0.7 thou/uL (0.11-0.59); #Neutrophils 11.4 thou/uL (1.40-6.50); %Basophils 0.5 % (0.0-1.0); %Eosinophils 3.3 % (0.0-10.0); %Lymphocytes 26.4 % (21.0-51.0); %Monocytes 4.3 % (0.0-10.0); %Neutrophils 65.5 % (42.0-75.0); Hemoglobin 8.6 g/dL (12.0-16.0); Mean Corpuscular HGB CONC 30.8 g/dL (32.0-36.0); Mean Corpuscular Volume 68.2 fL (78.0-98.0); Mean Platelet Volume 6.8 fL (7.4-10.4); Platelet Count 337 thou/uL (130-400); RBC Distribution Width 18.2 % (11.5-14.5); Red Blood Cell (RBC) Count 4.08 mill/uL (4.20-5.40); White Blood Cell (WBC) Count 17.4 thou/uL (4.8-10.8)
[2019-01-26 05:38] LABS: Anisocytosis SLIGHT = 6-15 cells (100X) (0-5/hpf); Hypochromia SLIGHT = 6-15 cells (100X) (0-5/hpf); MDiff Complete? YES; Microcytosis SLIGHT = 6-15 cells (100X) (0-5/hpf); Polychromasia SLIGHT = 2-3 cells (100X) (0-2/hpf); Schistocytes SLIGHT = 2-5 cells (100X) (0-1/hpf); Target Cells SLIGHT = 2-5 cells (100X) (0-1/hpf)
[2019-01-26] MEDS: NIFEdipine XL 60 MG TAB PO SCH (06:22)
[2019-01-26] MEDS: Ibuprofen 800 MG TAB PO SCH (06:22)
--- NOTE | 2019-01-26 09:16 | PRG ---
DATE OF SERVICE: 01/26/2019 SUBJECTIVE: The patient is postop day 4, status post a primary at 31 weeks' gestation for nonreassuring heart tones in the setting of preeclampsia with severe features. The patient has had difficulty getting her blood pressures under control and yesterday was increased to Procardia XL 60 mg daily. Over the last 24 hours, her blood pressures have had a couple of elevations associated with tachycardia and likely during the time of being emotionally upset as the patient has been grieving with separation from her other two children and had threatened to discharge home AMA on at least one occasion. OBJECTIVE: VITAL SIGNS: Most recent blood pressure is 139/96, pulse of 95, temperature of 98.8, respiratory rate of 18, and saturating 100% on room air. GENERAL: She appears to be in no acute distress. She is alert, oriented, cooperative, and pleasant to interact with. HEENT: Head is normocephalic and atraumatic. ABDOMEN: Soft. Fundus is firm. Incision is clean, dry, and intact. EXTREMITIES: Nontender and nonedematous. The patient did get one dose of Lasix last night with a total output of about 2 L of fluid. ASSESSMENT AND PLAN: The patient is a 23-year-old female, postop day 4, status post a primary with preeclampsia and severe features. She is on Procardia XL 60 mg daily. Anticipate discharge this afternoon. We will watch her through the morning to ensure blood pressures are not spiking. Job ID: [id number] MTDD
[2019-01-26 11:58] VITALS: BP 148/99; TEMP 98.8
== END 2019-01-26 15:00 | disposition home or self-care (01) | DRG 787 ==
LOC: L&D/OP 15:58 → L&D 18:01 → 3SE 01-21 09:59 → L&D 01-22 08:16 → 3SW 01-23 14:21
PROVIDERS: ADMIT Obstetrics & Gynecology; ATTEND Obstetrics & Gynecology
PROC: 10D00Z1 Extraction of Products of Conception, Low, Open Approach (ICD-10-PCS; principal; 2019-01-24)
PROC: 3E02340 Introduction of Influenza Vaccine into Muscle, Percutaneous Approach (ICD-10-PCS; 2019-01-24)
DX: O14.14 Severe pre-eclampsia complicating childbirth (principal); D62 Acute posthemorrhagic anemia; Z23 Encounter for immunization; O34.211 Maternal care for low transverse scar from previous cesarean delivery; O99.214 Obesity complicating childbirth; E66.9 Obesity, unspecified; O76 Abnormality in fetal heart rate and rhythm complicating labor and delivery; O99.02 Anemia complicating childbirth; Z3A.31 31 weeks gestation of pregnancy; Z37.0 Single live birth
CPT/HCPCS: 36415; 51702; 76815; 76819; 80053; 80306; 81003; 82570; 82805; 83735; 84156; 85025; 85027; 86780; 86850; 86900; 86901; 87340; 88307; 99285; J0360; J0690; J0702; J1200; J1885; J1940; J2250; J2274; J2310; J2405; J2550; J2590; J2704; J3475